=== PATIENT | male | born 1955 | race African-American/Black ===

== ENCOUNTER 2016-10-27 11:44 | Emergency (ER) | payer MEDICAID, OTHER ==
[~2016-10-27] VITALS: Ht 182.9 cm; Wt 55.0 kg
[~2016-10-27 11:44] MED LIST: ACIDCAP PO; CYCL1TAB29 PO; DICY10 PO; GABA300C5 PO; LEVEMIR SQ; MAGN250T2 PO; METF1000 PO; REGL5TAB PO
[2016-10-27 11:47] VITALS: BP 130/83; PULSE 86; RESP 36; TEMP 97.2; O2SAT 97
[2016-10-27 12:02] VITALS: BP 185/81; PULSE 68; RESP 22; TEMP 98.4; O2SAT 100
--- NOTE | 2016-10-27 12:12 | PD ---
HPI Chief Complaint: Abdominal Pain Time Seen by Provider: 12:02 Travel History International Travel<30 days: No Contact w/Intl Traveler<30days: No Traveled to known affect area: No History of Present Illness HPI 61-year-old male came to the emergency room with history of abdominal pain that started 4 days ago. Patient was admitted at [facility] for couple days after he went there to be checked. Patient has history of diabetes and history of gastroparesis. He was discharged yesterday from the hospital. Since his symptoms continue and this hospital was closer to him he decided to come here today. He has been nauseous. No vomiting. Patient said at home his blood sugar was reading high but here as per the nurse it's 225. His vital signs are otherwise stable. Patient looks anxious and in distress. [facility] Past Medical History Narrative Medical List of his past medical history as reviewed from the nursing note. Hx Anticoagulant Therapy: Yes (asa 81mg) Cancer: No Cardiovascular Problems: Yes High Cholesterol: Yes Diabetes: Yes (type I) Patient Takes Glucophage: No Diminished Hearing: No Endocrine: Yes Gastrointestinal Disorders: Yes (GASTROPARESIS) Genitourinary: No Hypertension: Yes (PATIENT SAYS HE FLUCTUATES ) Immune Disorder: No Implanted Vascular Access Dvce: Yes Musculoskeletal: No Neurologic: No Psychiatric: No Reproductive: No Respiratory: Yes (copd) Tetanus Vaccination: Unknown Influenza Vaccination: Yes ?: Not Past Surgical History Body Medical Devices: SCREWS TO LEFT HIP. BULLET AND STEEL TO RIGHT KNEE. Other Surgery: Yes Social History Alcohol Use: No Tobacco Use: Yes (09/24 PPD) Substance Use: Yes (MARIJUANA) Allergies-Medications (Allergen,Severity, Reaction): Coded Allergies: No Known Allergies (Verified , 09/08/16) Comments No known drug allergies. Reported Meds & Prescriptions Reported Meds & Active Scripts Active Reglan (Metoclopramide HCl) 5 Mg Tab 5 Mg PO TIDAC Bentyl (Dicyclomine HCl) 10 Mg Cap 10 Mg PO QID Gabapentin 300 Mg Cap 300 Mg PO TID Gabapentin 300 Mg Cap 300 Mg PO TID Metformin (Metformin HCl) 1,000 Mg Tab 1,000 Mg PO BIDPC With meals Reglan (Metoclopramide HCl) 5 Mg Tab 5 Mg PO TIDAC Reported Reglan (Metoclopramide HCl) 5 Mg Tab 5 Mg PO QID PRN Metformin (Metformin HCl) 1,000 Mg Tab 1,000 Mg PO DAILY IN THE PM With a meal Magnesium 250 Mg Tab 250 Mg PO DAILY Levemir Inj (Insulin Detemir) 1,000 unit/ 10 ML Vial 8 Units SQ BID Do not mix with any other Insulin. Gabapentin 300 Mg Cap 300 Mg PO TID Flexeril (Cyclobenzaprine HCl) 10 Mg Tab 10 Mg PO TID PRN Acidophilus (Lactobacillus Acidophilus) 1 Cap Cap 1 Cap PO TID Narrative Medication List of his home medications reviewed from the nursing note. Review of Systems Except as stated in HPI: all other systems reviewed are Neg Physical Exam Narrative GENERAL: Awake, alert, anxious, moderate distress SKIN: Warm and dry. HEAD: Atraumatic. Normocephalic. EYES: Pupils equal and round. No scleral icterus. No injection or drainage. ENT: No nasal bleeding or discharge. Mucous membranes pink and moist. NECK: Trachea midline. No JVD. CARDIOVASCULAR: Regular rate and rhythm. No murmur appreciated. RESPIRATORY: No accessory muscle use. Clear to auscultation. Breath sounds equal bilaterally. GASTROINTESTINAL: Abdomen soft, generalized tenderness, nondistended. Hepatic and splenic margins not palpable. MUSCULOSKELETAL: No obvious deformities. No clubbing. No cyanosis. No edema. NEUROLOGICAL: Awake and alert. No obvious cranial nerve deficits. Motor grossly within normal limits. Normal speech. PSYCHIATRIC: Appropriate mood and affect; insight and judgment normal. Data Data Last Documented VS Vital Signs Date Time Temp Pulse Resp B/P Pulse Ox O2 Delivery O2 Flow Rate FiO2 10/27/16 14:43 82 20 146/86 98 Room Air 10/27/16 12:02 98.4 Orders Complete Blood Count With Diff (10/27/16 12:17) Comprehensive Metabolic Panel (10/27/16 12:17) Lipase (10/27/16 12:17) Ua Includes Microscopic (10/27/16 12:17) Abdomen, Flat & Upright (10/27/16 ) Iv Access Insert/Monitor (10/27/16 12:17) Ecg Monitoring (10/27/16 12:17) Oximetry (10/27/16 12:17) Sodium Chlor 0.9% 1000 Ml Inj (Ns 1000 M (10/27/16 12:17) Sodium Chloride 0.9% Flush (Ns Flush) (10/27/16 12:30) Electrocardiogram (10/27/16 12:17) Ketorolac Inj (Toradol Inj) (10/27/16 12:30) Metoclopramide Inj (Reglan Inj) (10/27/16 12:30) Sodium Chlor 0.9% 1000 Ml Inj (Ns 1000 M (10/27/16 13:45) Labs Laboratory Tests Test 10/27/16 10/27/16 12:05 12:55 White Blood Count 6.1 TH/MM3 Red Blood Count 4.58 MIL/MM3 Hemoglobin 13.0 GM/DL Hematocrit 39.2 % Mean Corpuscular Volume 85.6 FL Mean Corpuscular Hemoglobin 28.3 PG Mean Corpuscular Hemoglobin 33.1 % Concent Red Cell Distribution Width 14.4 % Platelet Count 445 TH/MM3 Mean Platelet Volume 8.7 FL Neutrophils (%) (Auto) 74.7 % Lymphocytes (%) (Auto) 19.1 % Monocytes (%) (Auto) 5.8 % Eosinophils (%) (Auto) 0.1 % Basophils (%) (Auto) 0.3 % Neutrophils # (Auto) 4.5 TH/MM3 Lymphocytes # (Auto) 1.2 TH/MM3 Monocytes # (Auto) 0.3 TH/MM3 Eosinophils # (Auto) 0.0 TH/MM3 Basophils # (Auto) 0.0 TH/MM3 CBC Comment DIFF FINAL Differential Comment Sodium Level 127 MEQ/L Potassium Level 4.3 MEQ/L Chloride Level 91 MEQ/L Carbon Dioxide Level 29.0 MEQ/L Anion Gap 7 MEQ/L Blood Urea Nitrogen 7 MG/DL Creatinine 0.75 MG/DL Estimat Glomerular Filtration 127 ML/MIN Rate Random Glucose 235 MG/DL Calcium Level 9.6 MG/DL Total Bilirubin 0.4 MG/DL Aspartate Amino Transf 33 U/L (AST/SGOT) Alanine Aminotransferase 51 U/L (ALT/SGPT) Alkaline Phosphatase 116 U/L Total Protein 8.7 GM/DL Albumin 4.1 GM/DL Lipase 180 U/L Urine Color LIGHT-YELLOW Urine Turbidity CLEAR Urine pH 8.5 Urine Specific [place] 1.011 Urine Protein NEG mg/dL Urine Glucose (UA) 1000 mg/dL Urine Ketones 40 mg/dL Urine Occult Blood NEG Urine Nitrite NEG Urine Bilirubin NEG Urine Urobilinogen LESS THAN 2.0 MG/DL Urine Leukocyte Esterase NEG Microscopic Urinalysis Comment MDM Medical Decision Making Medical Screen Exam Complete: Yes Emergency Medical Condition: Yes Medical Record Reviewed: Yes Interpretation(s) Twelve-lead EKG was reviewed by me. Normal sinus rhythm, normal axis, possible LVH, nonspecific ST-T wave changes.. Heart rate of 68 bpm. Differential Diagnosis Small bowel obstruction, gastroparesis, acute on chronic abdominal pain Narrative Course 1:21 PM blood test results are coming back and CBC is within normal limit. Chemistry is pending. X-ray of the abdomen is waiting to be read. Patient is given IV fluid, nausea and pain medication. 2:13 PM x-rays within normal limit. I will discharge him home. Procedures EKG Prior to Arrival: No Diagnosis Primary Impression: Gastroparesis Referrals: Primary Care Physician 2 days Additional Instructions: Follow-up with your primary care. Take medication as per the prescription direction. Med/Other Pt SpecificInfo: Prescription(s) given Scripts Metoclopramide (Reglan)5 Mg Tab5 Mg PO TIDAC #15 TAB Ref 0 Prov:Singh Law MD 10/27/16 Disposition: 01 DISCHARGE HOME Condition: Stable Singh Law MD Oct 27, 2016 12:12 Singh Law MD Oct 27, 2016 12:12
[2016-10-27] MEDS ORDERED: SODIUM CHLOR 0.9% 1000 ML INJ 1,000 ML IV SCH (12:17)
[2016-10-27] MEDS ORDERED: KETOROLAC TROMETHAMINE 30 MG/ML (IVP) VIAL IVP ONE (12:30)
[2016-10-27] MEDS ORDERED: METOCLOPRAMIDE HCL 10 MG/2 ML VIAL IV PUSH ONE (12:30)
[2016-10-27] MEDS ORDERED: SODIUM CHLORIDE 0.9% FLUSH 5 ML FLUSH IVF PRN (12:30)
[2016-10-27 12:50] VITALS: O2SAT 98
[2016-10-27 12:59] LABS: AUTOMATED NEUTROPHIL # 4.5 TH/MM3 (1.8-7.7); BASOPHIL % 0.3 % (0.0-2.0); EOSINOPHIL % 0.1 % (0.0-4.0); HEMATOCRIT 39.2 % (39.0-51.0); HEMO FLAGS DIFF FINAL; LYMPH % 19.1 % (9.0-44.0); LYMPHOCYTE # 1.2 TH/MM3 (1.0-4.8); MEAN CELL VOLUME 85.6 FL (80.0-100.0); MEAN CORPUSCULAR HEMOGLOBIN 28.3 PG (27.0-34.0); MEAN CORPUSCULAR HGB CONC 33.1 % (32.0-36.0); MONO % 5.8 % (0.0-8.0); NEUT % 74.7 % (16.0-70.0); PLATELET COUNT 445 TH/MM3 (150-450); RED BLOOD COUNT 4.58 MIL/MM3 (4.50-5.90); RED CELL DISTRIBUTION WIDTH 14.4 % (11.6-17.2); WHITE BLOOD COUNT 6.1 TH/MM3 (4.0-11.0)
[2016-10-27 13:11] LABS: BLOOD, URINE NEG (NEG); GLUCOSE,URINE 1000 mg/dL (NEG); KETONE, URINE 40 mg/dL (NEG); NITRITE,URINE NEG (NEG); PH, URINE 8.5 (5.0-8.5); URINE COLOR LIGHT-YELLOW (YELLW/STRAW)
[2016-10-27 13:22] LABS: ALKALINE PHOSPHATASE 116 U/L (45-117); TOTAL BILIRUBIN ADULT 0.4 MG/DL (0.2-1.0)
[2016-10-27 13:23] LABS: ALT (GPT) 51 U/L (12-78); ANION GAP 7 MEQ/L (5-15); AST (GOT) 33 U/L (15-37); BLOOD UREA NITROGEN 7 MG/DL (7-18); CHLORIDE 91 MEQ/L (98-107); GLOMERULAR FILTRATION RATE 127 ML/MIN (>89); POTASSIUM 4.3 MEQ/L (3.5-5.1); SODIUM (NA) 127 MEQ/L (136-145)
[2016-10-27] MEDS ORDERED: SODIUM CHLOR 0.9% 1000 ML INJ 1,000 ML IV ONE (13:45)
--- NOTE | 2016-10-27 13:56 | RADRPT ---
EXAM DATE/TIME: 10/27/2016 12:42 [facility] COMPARISON: No previous studies available for comparison. INDICATIONS: Diffuse abdominal pain, nausea MEDICAL HISTORY: Diabetes mellitus type II. SURGICAL HISTORY: None. ENCOUNTER: Initial ACUITY: >1 year PAIN SCORE: 10/10 LOCATION: Bilateral abdomen FINDINGS: Lung bases are clear. Bowel gas pattern is unremarkable. There is no free air or obstruction. Port ion of bony skeleton visualized unremarkable. CONCLUSION: Nonspecific bowel gas pattern. Shravan Vides MD FACR on October 27, 2016 at 12:56 Board Certified Radiologist. This report was verified electronically.
[2016-10-27] MEDS ORDERED: REGL5TAB PO (14:14)
[2016-10-27 14:43] VITALS: BP 146/86; PULSE 82; RESP 20; O2SAT 98
--- NOTE | 2016-10-28 18:01 | EKG ---
Date Performed: 10/27/2016 Time Performed: 13:05:07 PTAGE: 61 years EKG: Sinus rhythm RIGHT ATRIAL ENLARGEMENT POSSIBLE LEFT ATRIAL ENLARGEMENT Since previous tracing, no significant sudhir nge noted ABNORMAL ECG PREVIOUS TRACING : 06/18/2016 19.04 DOCTOR: Quirino Ken Interpretating Date/Time 10/28/2016 18:00:22
== END 2016-10-27 15:05 | disposition home or self-care (01) ==
LOC: NEPE 11:44
DX: K31.84 Gastroparesis (principal); R11.0 Nausea; R94.31 Abnormal electrocardiogram [ECG] [EKG]; E10.9 Type 1 diabetes mellitus without complications; E78.00 Pure hypercholesterolemia, unspecified; I10 Essential (primary) hypertension; F17.210 Nicotine dependence, cigarettes, uncomplicated; F12.90 Cannabis use, unspecified, uncomplicated; Z79.01 Long term (current) use of anticoagulants; Z79.4 Long term (current) use of insulin
CPT/HCPCS: 74020; 80053; 81001; 83690; 85025; 93005; 96361; 96374; 96375; 99284; J1885; J2765; J7030

== ENCOUNTER 2017-05-22 17:12 | Observation (INO) | payer MEDICARE, OTHER ==
[~2017-05-22] VITALS: Ht 182.9 cm; Wt 55.0 kg
[2017-05-22 17:15] VITALS: BP 140/86; PULSE 87; RESP 18; TEMP 98.7; O2SAT 98
--- NOTE | 2017-05-22 19:33 | PD ---
HPI . Chest pain for 3 days Chief Complaint: Chest Pain Time Seen by Provider: 19:33 Travel History International Travel<30 days: No Contact w/Intl Traveler<30days: No Traveled to known affect area: No History of Present Illness HPI 62-year-old male with past history of diabetes type 1, gastroparesis and neuropathy here with complaints of 3 days worth of chest pain. Patient tells me that he's had some substernal chest pain for the past 3 days. He rates the pain as severe and tells me of 08/30. It does not radiate elsewhere. He denies any associated nausea, vomiting or diaphoresis or shortness of breath. He became concerned as this is a pain that he is not accustomed to. He tells me that he usually has gastroparesis flares, but this is something different. His PCP is Dr. Amaral. [facility] Past Medical History Hx Anticoagulant Therapy: Yes (ASA 81) Cancer: No Cardiovascular Problems: Yes High Cholesterol: Yes Diabetes: Yes Diminished Hearing: No Endocrine: Yes Gastrointestinal Disorders: Yes (GASTROPARESIS) Genitourinary: No Hypertension: Yes (PATIENT SAYS HE FLUCTUATES ) Immune Disorder: No Implanted Vascular Access Dvce: Yes Musculoskeletal: No Neurologic: No Psychiatric: No Reproductive: No Respiratory: Yes (copd) Past Surgical History Body Medical Devices: SCREWS TO LEFT HIP. BULLET AND STEEL TO RIGHT KNEE. Other Surgery: Yes Social History Alcohol Use: No Tobacco Use: Yes (09/24 PPD) Substance Use: Yes (MARIJUANA) Allergies-Medications (Allergen,Severity, Reaction): Coded Allergies: No Known Allergies (Verified , 05/22/17) Reported Meds & Prescriptions Reported Meds & Active Scripts Active Reglan (Metoclopramide HCl) 5 Mg Tab 5 Mg PO TIDAC Reported Levemir Inj (Insulin Detemir) 1,000 unit/ 10 ML Vial 25 Units SQ DAILY Do not mix with any other Insulin. Gabapentin 300 Mg Cap 300 Mg PO TID Review of Systems General / Constitutional: No: Fever Eyes: No: Visual changes HENT: No: Headaches Cardiovascular: Positive: Chest Pain or Discomfort Respiratory: No: Shortness of Breath Gastrointestinal: No: Abdominal Pain Genitourinary: No: Dysuria Musculoskeletal: No: Pain Skin: No Rash Neurologic: No: Weakness Psychiatric: No: Depression Endocrine: No: Polydipsia Hematologic/Lymphatic: No: Easy Bruising Physical Exam Narrative GENERAL: AAO x 3, no acute distress,thin appearing SKIN: Warm and dry. No visible rashes or bruising. HEAD: Normocephalic and atraumatic. EYES: No scleral icterus. No injection or drainage. ENT: No nasal drainage noted. Mucous membranes pink. Airway patent. NECK: Supple, trachea midline. No JVD. CARDIOVASCULAR: Regular rate and rhythm without murmurs, gallops, or rubs. no reproducible chest pain RESPIRATORY: Breath sounds equal bilaterally. No accessory muscle use. No rhonchi or rales. GASTROINTESTINAL: Abdomen soft, non-tender, nondistended. EXTREMITIES: No cyanosis or edema. BACK: Nontender without obvious deformity. No CVA tenderness. NEURO: CN II-12 intact, exhibitions curator strength normal b/l, UE and LE 5/5, no focal deficits PSYCH: AAO x 3, normal affect. Data Data Last Documented VS Vital Signs Date Time Temp Pulse Resp B/P (MAP) Pulse Ox O2 Delivery O2 Flow Rate FiO2 05/22/17 20:18 98 Room Air 05/22/17 20:18 16 05/22/17 17:15 98.7 87 Orders Orders Electrocardiogram (05/22/17 19:37) Basic Metabolic Panel (Bmp) (05/22/17 19:37) B-Type Natriuretic Peptide (05/22/17 19:37) Ckmb (Isoenzyme) Profile (05/22/17 19:37) Complete Blood Count With Diff (05/22/17 19:37) Magnesium (Mg) (05/22/17 19:37) Prothrombin Time / Inr (Pt) (05/22/17 19:37) Act Partial Throm Time (Ptt) (05/22/17 19:37) Troponin I (05/22/17 19:37) Chest, Single Ap (05/22/17 19:37) Ecg Monitoring (05/22/17 19:37) Bilateral Bp Monitoring (05/22/17 19:37) Iv Access Insert/Monitor (05/22/17 19:37) Oximetry (05/22/17 19:37) Oxygen Administration (05/22/17 19:37) Sodium Chloride 0.9% Flush (Ns Flush) (05/22/17 19:45) Labs Laboratory Tests Test 05/22/17 20:00 White Blood Count 4.0 TH/MM3 Red Blood Count 4.83 MIL/MM3 Hemoglobin 13.2 GM/DL Hematocrit 41.3 % Mean Corpuscular Volume 85.5 FL Mean Corpuscular Hemoglobin 27.3 PG Mean Corpuscular Hemoglobin Concent 32.0 % Red Cell Distribution Width 15.2 % Platelet Count 307 TH/MM3 Mean Platelet Volume 7.5 FL Neutrophils (%) (Auto) 41.8 % Lymphocytes (%) (Auto) 48.8 % Monocytes (%) (Auto) 7.9 % Eosinophils (%) (Auto) 1.1 % Basophils (%) (Auto) 0.4 % Neutrophils # (Auto) 1.7 TH/MM3 Lymphocytes # (Auto) 1.9 TH/MM3 Monocytes # (Auto) 0.3 TH/MM3 Eosinophils # (Auto) 0.0 TH/MM3 Basophils # (Auto) 0.0 TH/MM3 CBC Comment DIFF FINAL Differential Comment Prothrombin Time 10.0 SEC Prothromb Time International Ratio 0.9 RATIO Activated Partial Thromboplast Time 24.8 SEC MDM Medical Decision Making Medical Screen Exam Complete: Yes Emergency Medical Condition: Yes Medical Record Reviewed: Yes Differential Diagnosis atypical chest pain, ACS, costochondritis, pericarditis Narrative Course 62 yr old male here with c/o chest pain for 3 days. Exam is fairly unremarkable. I ordered labs and CXR. Patient will be admitted to the chest pain center for observation. Case has been discussed with my attending Dr. Law. She will disposition the patient. Diagnosis Primary Impression: Chest pain Qualified Codes: R07.9 - Chest pain, unspecified Admitting Information Admitting Physician Requests: Admit Condition: Stable Dee Molina May 22, 2017 19:33
[2017-05-22] MEDS ORDERED: SODIUM CHLORIDE 0.9% FLUSH 10 ML FLUSH IVF PRN (19:45)
[2017-05-22 20:18] VITALS: RESP 16; O2SAT 97
[2017-05-22 20:22] LABS: AUTOMATED NEUTROPHIL # 1.7 TH/MM3 (1.8-7.7); BASOPHIL % 0.4 % (0.0-2.0); EOSINOPHIL % 1.1 % (0.0-4.0); HEMATOCRIT 41.3 % (39.0-51.0); HEMO FLAGS DIFF FINAL; LYMPH % 48.8 % (9.0-44.0); LYMPHOCYTE # 1.9 TH/MM3 (1.0-4.8); MEAN CELL VOLUME 85.5 FL (80.0-100.0); MEAN CORPUSCULAR HEMOGLOBIN 27.3 PG (27.0-34.0); MONO % 7.9 % (0.0-8.0); NEUT % 41.8 % (16.0-70.0); PLATELET COUNT 307 TH/MM3 (150-450); RED BLOOD COUNT 4.83 MIL/MM3 (4.50-5.90); RED CELL DISTRIBUTION WIDTH 15.2 % (11.6-17.2)
[2017-05-22 20:32] LABS: APTT (PATIENT) 24.8 SEC (24.3-30.1); INTERNATIONAL NORMALIZED RATIO 0.9 RATIO
--- NOTE | 2017-05-22 21:19 | RADRPT ---
EXAM DATE/TIME: 05/22/2017 19:56 [facility] COMPARISON: No previous studies available for comparison. INDICATIONS : Left sided chest pain. MEDICAL HISTORY : Chronic obstructive pulmonary disease. SURGICAL HISTORY : None. ENCOUNTER: Initial ACUITY: 1 day PAIN SCORE: 10/10 LOCATION: chest FINDINGS: A single view of the chest demonstrates the lungs to be hyperinflated. They do appear grossly clear. The cardiomediastinal contours are unremarkable. Osseous structures are intact. CONCLUSION: Hyperinflated lungs. Ken Guo MD on May 22, 2017 at 21:17 Board Certified Radiologist. This report was verified electronically.
[2017-05-22 22:13] LABS: CREATINE KINASE 127 U/L (39-308)
[2017-05-22 22:25] LABS: CKMB 2.3 NG/ML (0.5-3.6)
[2017-05-22 22:28] LABS: ANION GAP 7 MEQ/L (5-15); BICARBONATE 27.7 MEQ/L (21.0-32.0); BLOOD UREA NITROGEN 9 MG/DL (7-18); CHLORIDE 101 MEQ/L (98-107); GLOMERULAR FILTRATION RATE 121 ML/MIN (>89); MAGNESIUM 1.8 MG/DL (1.5-2.5); POTASSIUM 3.7 MEQ/L (3.5-5.1); SODIUM (NA) 136 MEQ/L (136-145)
[2017-05-22] MEDS ORDERED: MORPHINE SULFATE 4 MG/ML INJ IV PUSH ONE (22:45)
--- NOTE | 2017-05-22 22:57 | PD ---
Physical Exam Date Seen by Provider: May 22, 2017 Time Seen by Provider: 22:52 Narrative 62-year-old male came to the emergency room for chest pain. He was seen by the nurse practitioner earlier. Case was signed out to me to follow-up on the blood test result after which patient should be admitted to the chest pain center. I went to see him after the test results are back. They're all within acceptable limits. He says he had his last stress test 10-12 months ago in [place]. I have admitted him to the chest pain center. Patient is agreeable with that plan. Data Data Last Documented VS Vital Signs Date Time Temp Pulse Resp B/P (MAP) Pulse Ox O2 Delivery O2 Flow Rate FiO2 05/22/17 20:18 98 Room Air 05/22/17 20:18 16 05/22/17 17:15 98.7 87 Orders Orders Electrocardiogram (05/22/17 19:37) Basic Metabolic Panel (Bmp) (05/22/17 19:37) B-Type Natriuretic Peptide (05/22/17 19:37) Ckmb (Isoenzyme) Profile (05/22/17 19:37) Complete Blood Count With Diff (05/22/17 19:37) Magnesium (Mg) (05/22/17 19:37) Prothrombin Time / Inr (Pt) (05/22/17 19:37) Act Partial Throm Time (Ptt) (05/22/17 19:37) Troponin I (05/22/17 19:37) Chest, Single Ap (05/22/17 19:37) Ecg Monitoring (05/22/17 19:37) Bilateral Bp Monitoring (05/22/17 19:37) Iv Access Insert/Monitor (05/22/17 19:37) Oximetry (05/22/17 19:37) Oxygen Administration (05/22/17 19:37) Sodium Chloride 0.9% Flush (Ns Flush) (05/22/17 19:45) CKMB (05/22/17 21:20) CKMB% (05/22/17 21:20) Morphine Inj (Morphine Inj) (05/22/17 22:45) Admit Order (Ed Use Only) (05/22/17 22:49) Labs Laboratory Tests Test 05/22/17 20:00 05/22/17 21:20 White Blood Count 4.0 TH/MM3 Red Blood Count 4.83 MIL/MM3 Hemoglobin 13.2 GM/DL Hematocrit 41.3 % Mean Corpuscular Volume 85.5 FL Mean Corpuscular Hemoglobin 27.3 PG Mean Corpuscular Hemoglobin Concent 32.0 % Red Cell Distribution Width 15.2 % Platelet Count 307 TH/MM3 Mean Platelet Volume 7.5 FL Neutrophils (%) (Auto) 41.8 % Lymphocytes (%) (Auto) 48.8 % Monocytes (%) (Auto) 7.9 % Eosinophils (%) (Auto) 1.1 % Basophils (%) (Auto) 0.4 % Neutrophils # (Auto) 1.7 TH/MM3 Lymphocytes # (Auto) 1.9 TH/MM3 Monocytes # (Auto) 0.3 TH/MM3 Eosinophils # (Auto) 0.0 TH/MM3 Basophils # (Auto) 0.0 TH/MM3 CBC Comment DIFF FINAL Differential Comment Prothrombin Time 10.0 SEC Prothromb Time International Ratio 0.9 RATIO Activated Partial Thromboplast Time 24.8 SEC B-Type Natriuretic Peptide 6 PG/ML Blood Urea Nitrogen 9 MG/DL Creatinine 0.78 MG/DL Random Glucose 205 MG/DL Calcium Level 8.8 MG/DL Magnesium Level 1.8 MG/DL Sodium Level 136 MEQ/L Potassium Level 3.7 MEQ/L Chloride Level 101 MEQ/L Carbon Dioxide Level 27.7 MEQ/L Anion Gap 7 MEQ/L Estimat Glomerular Filtration Rate 121 ML/MIN Total Creatine Kinase 127 U/L Creatine Kinase MB 2.3 NG/ML Troponin I LESS THAN 0.02 NG/ML MDM Supervised Visit with SCOTTIE: Yes Diagnosis Primary Impression: Chest pain Qualified Codes: R07.9 - Chest pain, unspecified Admitting Information Admitting Physician Requests: Observation Condition: Stable Singh Law MD May 22, 2017 22:57
[2017-05-22] MEDS ORDERED: ACETAMINOPHEN 500 MG CPLT PO PRN (23:00)
[2017-05-22] MEDS ORDERED: PANTOPRAZOLE SODIUM 40 MG VIAL IV PUSH ONE (23:00)
[2017-05-22] MEDS ORDERED: ASPIRIN 81 MG CHEW TAB CHEW ONE (23:00)
[2017-05-22] MEDS ORDERED: NITROGLYCERIN 0.4 MG SL 25 TABS/BTL SL PRN (23:00)
[2017-05-22] MEDS ORDERED: SODIUM CHLORIDE 0.9% FLUSH 10 ML FLUSH IV FLUSH PRN (23:00)
[2017-05-22 23:28] VITALS: O2SAT 97
[2017-05-23] VITALS (10 sets, daily range): BP systolic 98–123; BP diastolic 58–65; PULSE 70–77; RESP 16–21; TEMP 97.8–98.4; O2SAT 95–100
[2017-05-23 00:29] LABS: CREATINE KINASE 119 U/L (39-308)
[2017-05-23 00:42] LABS: CKMB 2.3 NG/ML (0.5-3.6)
[2017-05-23] MEDS ORDERED: DEXTROSE 5% IN WATER INJ 500 ML IV SCH (03:15)
[2017-05-23] MEDS ORDERED: ACETAMINOPHEN 500 MG CPLT PO PRN (03:15)
[2017-05-23] MEDS: ACETAMINOPHEN 500 MG CPLT PO PRN ×2 (03:21→11:18)
[2017-05-23] MEDS: DEXTROSE 5% IN WATE 500 ML INJ 500 ML IV SCH ×2 (03:22→13:58)
[2017-05-23 05:04] LABS: CREATINE KINASE 91 U/L (39-308)
[2017-05-23] MEDS ORDERED: SODIUM CHLORIDE 0.9% FLUSH 10 ML FLUSH IV FLUSH SCH (09:00)
[2017-05-23] MEDS ORDERED: PILL SPLITTER OTHER PRN (10:30)
[2017-05-23] MEDS ORDERED: METOCLOPRAMIDE HCL 10 MG TAB PO SCH (12:00)
[2017-05-23] MEDS ORDERED: DIATRIZOATE MEGLUM/DIATRIZOATE SOD 9 ML CUP PO ONE (12:00)
[2017-05-23] MEDS ORDERED: GABAPENTIN 300 MG CAP PO SCH (13:00)
--- NOTE | 2017-05-23 13:00 | EKG ---
Date Performed: 05/23/2017 Time Performed: 04:06:15 PTAGE: 62 years EKG: Sinus rhythm WITH OCCASIONAL SUPRAVENTRICULAR PREMATURE COMPLEXES BORDERLINE ECG PREVIOUS TRACING : 05/22/2017 23.30 DOCTOR: Roman Farias Interpretating Date/Time 05/23/2017 12:59:35
--- NOTE | 2017-05-23 13:03 | EKG ---
Date Performed: 05/22/2017 Time Performed: 23:30:08 PTAGE: 62 years EKG: Sinus rhythm NORMAL ECG PREVIOUS TRACING : 05/22/2017 19.48 DOCTOR: Roman Farias Interpretating Date/Time 05/23/2017 13:01:27
--- NOTE | 2017-05-23 13:04 | EKG ---
Date Performed: 05/22/2017 Time Performed: 19:48:15 PTAGE: 62 years EKG: Sinus rhythm NORMAL ECG PREVIOUS TRACING : 10/27/2016 13.05 DOCTOR: Roman Farias Interpretating Date/Time 05/23/2017 13:02:56
[2017-05-23] MEDS ORDERED: IOHEXOL 350 MG/ML 10 ML VIAL (for RAD DIAG) IVCONTRAST ONE (14:45)
--- NOTE | 2017-05-23 14:56 | RADRPT ---
EXAM DATE/TIME: 05/23/2017 14:09 [facility] COMPARISON: CT ABDOMEN & PELVIS W CONTRAST, June 18, 2016, 20:25. INDICATIONS : Abdomen pain. IV CONTRAST: 80 cc Omnipaque 350 (iohexol) IV ORAL CONTRAST: No oral contrast ingested. RADIATION DOSE: 9.96 CTDIvol (mGy) MEDICAL HISTORY : Chronic obstructive pulmonary disease. SURGICAL HISTORY : None. ENCOUNTER: Initial ACUITY: 1 day PAIN SCALE: 5/10 LOCATION: Bilateral abdomen. TECHNIQUE: Volumetric scanning of the abdomen and pelvis was performed. Using automated exposure control and ad justment of the mA and/or kV according to patient size, radiation dose was kept as low as reasonably achievable to obtain optimal diagnostic quality images. DICOM format image data is available electro nically for review and comparison. FINDINGS: LOWER LUNGS: The visualized lower lungs are clear. LIVER: Homogeneous density without lesion. There is no dilation of the biliary tree. No calcified gallston es. SPLEEN: Normal size without lesion. PANCREAS: Within normal limits. KIDNEYS: Normal in size and shape. There is no mass, stone or hydronephrosis. ADRENAL GLANDS: Within normal limits. VASCULAR: There is no aortic aneurysm. BOWEL/MESENTERY: There is nonspecific thickening in the antrum. ABDOMINAL WALL: Within normal limits. RETROPERITONEUM: There is no lymphadenopathy. BLADDER: No wall thickening or mass. REPRODUCTIVE: Within normal limits. INGUINAL: There is no lymphadenopathy or hernia. MUSCULOSKELETAL: Degenerative changes are seen about both SI joints with previous hip nailing on the left causing mode rate artifact. CONCLUSION: Mild bowel wall thickening antrum, nonspecific but usually associated with peptic disease. Shravan Vides MD FACR on May 23, 2017 at 14:51 Board Certified Radiologist. This report was verified electronically.
[2017-05-23] MEDS ORDERED: DEXTROSE 50% IN WATER 50 ML VIAL(D50) IV PRN (15:00)
[2017-05-23] MEDS ORDERED: GLUCAGON 1 MG/ML VIAL OTHER PRN (15:00)
[2017-05-23] MEDS ORDERED: INSULIN ASPART SUPPLEMENTAL SCALE SQ SCH (16:00)
--- NOTE | 2017-05-23 16:01 | HHI.DCPOC ---
Discharge Care Plan Goals to Promote Your Health * To prevent worsening of your condition and complications * To maintain your health at the optimal level Directions to Meet Your Goals Take your medications as prescribed Follow your dietary instruction Follow activity as directed Keep your appointments as scheduled Take your immunizations and boosters as scheduled If your symptoms worsen call your PCP, if no PCP go to Urgent Care Center or Emergency Room Smoking is Dangerous to Your Health. Avoid second hand smoke Call the 24-hour hour crisis hotline for domestic abuse at Aisha Whitney May 23, 2017 16:01
--- NOTE | 2017-05-23 16:01 | HHI.DCPOC ---
Discharge Care Plan Goals to Promote Your Health * To prevent worsening of your condition and complications * To maintain your health at the optimal level Directions to Meet Your Goals Take your medications as prescribed Follow your dietary instruction Follow activity as directed Keep your appointments as scheduled Take your immunizations and boosters as scheduled If your symptoms worsen call your PCP, if no PCP go to Urgent Care Center or Emergency Room Smoking is Dangerous to Your Health. Avoid second hand smoke Call the 24-hour hour crisis hotline for domestic abuse at Aisha Whitney May 23, 2017 16:01
--- NOTE | 2017-05-23 16:06 | HHI.DCPOC ---
Discharge Care Plan Diagnosis: (1) Abdominal pain (2) Gastroparesis due to DM (3) Bowel wall thickening (4) Weight loss, unintentional (5) Hypoalbuminemia (6) Atypical chest pain (7) Tobacco abuse Goals to Promote Your Health * To prevent worsening of your condition and complications * To maintain your health at the optimal level Directions to Meet Your Goals Take your medications as prescribed Follow your dietary instruction Follow activity as directed Keep your appointments as scheduled Take your immunizations and boosters as scheduled If your symptoms worsen call your PCP, if no PCP go to Urgent Care Center or Emergency Room Smoking is Dangerous to Your Health. Avoid second hand smoke Call the 24-hour hour crisis hotline for domestic abuse at Aisha Whitney May 23, 2017 16:05
--- NOTE | 2017-05-25 06:53 | MH ---
cc: BRIANA FARIAS MD DATE OF ADMISSION 05/22/2017 DATE OF 1955 CHIEF COMPLAINT Abdominal and chest pain. HISTORY OF PRESENT ILLNESS A very pleasant 62-year-old -[place] thin male who presents to the emergency room with complaints of midepigastric pain that radiates across his upper abdomen and left anterior chest discomfort beginning approximately 2 days ago. He states the discomfort is constant in nature, feels like a pulling type pain, is not associated with any nausea, vomiting. He has had progressive weight loss. He states decreased appetite and early satiety that has been going on for weeks. He saw his primary care physician 2 days ago and states that he had just started with the discomfort at that time and discussed some of this with him as well. He has a long history of gastroparesis and he is on Reglan for that which he states helped some. He feels that the epigastric discomfort is similar to that of his past gastroparesis pain except for worse. He denies any radiation of pain elsewhere. He notices some dyspnea at times but he is unsure, believes that might be related to when the pain is the worst. There is no diaphoresis. He has had no changes in bowel movements. He states he has been eating very little lately. He denies any history of heart disease to his knowledge. He does not recall having the left chest discomfort in the past. PAST MEDICAL HISTORY Diabetes insulin dependent, gastroparesis. Tobacco use times 30 years, has cut back to a quarter of a pack per day. Past marijuana, use none currently. Past alcohol use daily but states he quit in 2013. Positive diabetic neuropathy pain. Denies history of hypertension. Denies history of dyslipidemia. Denies history of heart disease. Left hip surgery after a fall. Positive for progressive recent weight loss. FAMILY HISTORY Significant only in his mother for late onset heart disease, of an OH in her 80s. However, he is unsure of dad's history as he is not known to him. SOCIAL HISTORY As above. MEDICATIONS 1. Levemir insulin. 2. Gabapentin. 3. Reglan. ALLERGIES NKA. REVIEW OF SYSTEMS Positive for what is discussed above in HPI, otherwise, remaining system review is negative. PHYSICAL EXAMINATION VITAL SIGNS: Vital signs were stable. Temperature 98.2, heart rate 75, respiratory rate 20, blood pressure 110/62, O2 saturations 95% on room air. He has been afebrile since admission. GENERAL: Generally, this is a very pleasant 62-year-old very thin, almost cachectic elderly -Swazi male who is friendly, cooperative, answers questions readily and resting quietly in bed in no acute distress. HEAD: Head is atraumatic, normocephalic. EYES: Sclerae clear, nonicteric. EOMI. NECK: Neck is supple. Trachea is midline. No JVD or carotid bruits. CVS: S1-S2, RRR. No S3-S4, rub, gallop or murmur. RESPIRATORY: CTA-B. ABDOMEN: Soft, concave, quite tender to light palpation along the mid epigastrium, left upper quadrant. He has hypoactive bowel sounds throughout. No definite masses are palpated. CHEST: He has just some mild left anterior chest wall musculoskeletal tenderness on exam. EXTREMITIES: Very thin. Pulses are 2+. He moves all extremities well. SKIN: Skin is cool and dry. Muscle strength testing is not done but does appear to have overall muscle loss. LABORATORY DATA CBC, lymphocyte percentage 48.8, otherwise unremarkable. Coag profile unremarkable. Basic chemistry on admission shows random blood glucose of 205. Liver functions were added and normal. Amylase, lipase normal range. Albumin is low at 3.0. Three sets of negative cardiac enzymes. IMAGING STUDIES Chest film showing hyperinflated lungs. ELECTROCARDIOGRAM EKGs were done x3 all showing sinus rhythm with occasional supraventricular premature complex. There is no changes to suggest ischemia or old injury. ASSESSMENT/PLAN 1. Epigastric/chest pain in a patient with history of gastroparesis and progressive weight loss with increasing epigastric pain as discussed above. He is ruled out with three sets of cardiac enzymes and EKGs. Seen and evaluated by Dr. Farias in cardiology. His symptoms as far as cardiac were very atypical in nature and concern was based upon his progressive reported weight loss, his increased early satiety and lack of appetite along with his history of gastroparesis and increasing abdominal pain. Labs were checked as above. CT of abdomen and pelvis was ordered and currently awaiting those results at time of dictation. He is receiving IV fluid currently for hydration and medications were resumed as appropriate prior to admission. Further plan will be based upon results of imaging. Dictated by: RAMIREZ Cohen MD ANAYA Bentley /1:02 PM /6:49 AM
== END 2017-05-23 17:32 | disposition home or self-care (01) ==
LOC: NEPD 17:12 → NEDA 22:50 → NEPFCDU 05-23 01:57
PROVIDERS: ADMIT Internal Medicine Interventional Cardiology; ATTEND Internal Medicine Interventional Cardiology
DX: R07.89 Other chest pain (principal); R10.9 Unspecified abdominal pain; I10 Essential (primary) hypertension; E88.09 Other disorders of plasma-protein metabolism, not elsewhere classified; K31.84 Gastroparesis; E10.43 Type 1 diabetes mellitus with diabetic autonomic (poly)neuropathy; J44.9 Chronic obstructive pulmonary disease, unspecified; Z72.0 Tobacco use; Z79.4 Long term (current) use of insulin
CPT/HCPCS: 71010; 74177; 80048; 82040; 82150; 82550; 82552; 82948; 83690; 83735; 83880; 84450; 84460; 84484; 85025; 85610; 85730; 93005; 96361; 96374; 96375; 99285; C9113; G0378; J2270; J7060; Q9963; Q9967

== ENCOUNTER 2017-08-14 21:23 | Emergency (ER) | payer MEDICARE, OTHER ==
[~2017-08-14 21:23] MED LIST changes: -ACIDCAP PO; -CYCL1TAB29 PO; -DICY10 PO; -MAGN250T2 PO; -METF1000 PO
[2017-08-14 21:46] VITALS: BP 111/69; PULSE 90; RESP 16; TEMP 98.1; O2SAT 98
[2017-08-14] MEDS ORDERED: KETOROLAC TROMETHAMINE 30 MG/ML (IVP) VIAL IV PUSH ONE (22:00)
[2017-08-14] MEDS ORDERED: SODIUM CHLORIDE 0.9% FLUSH 10 ML FLUSH IV FLUSH PRN (22:00)
[2017-08-14] MEDS ORDERED: SODIUM CHLOR 0.9% 1000 ML INJ 1,000 ML IV SCH (22:00)
[2017-08-14] MEDS ORDERED: METOCLOPRAMIDE HCL 10 MG/2 ML VIAL IV PUSH ONE (22:00)
--- NOTE | 2017-08-14 22:03 | PD ---
HPI Chief Complaint: Abdominal Pain Time Seen by Provider: 21:51 Travel History International Travel<30 days: No Contact w/Intl Traveler<30days: No Traveled to known affect area: No History of Present Illness HPI Patient is a 62-year-old male presents emergency department for evaluation of generalized fatigue. Patient also states she's been having some abdominal discomfort. States she has a history of gastroparesis has been presenting to multiple ERs in the area and ultimately referred to pain management by his primary care physician. Patient states he called the pain management doctor who told him he needed to see a imaging aide. He states he has an appointment with his imaging aide this coming Thursday but for the past 24- 48 hours she's really been feeling weeks we decided to come in and be seen tonight. Denies any vomiting or diarrhea to me. Denies any fevers. States is just feeling rundown. States symptoms are gradually worsening. PFSH Past Medical History Hx Anticoagulant Therapy: Yes (ASA 81) Heart Rhythm Problems: No Cancer: No Cardiac Catheterization: No Cardiovascular Problems: No High Cholesterol: No Congestive Heart Failure: No Diabetes: Yes Patient Takes Glucophage: No Diminished Hearing: No Endocrine: Yes Gastrointestinal Disorders: Yes (GASTROPARESIS) Genitourinary: No Immune Disorder: No Implanted Vascular Access Dvce: Yes Musculoskeletal: No Neurologic: No Psychiatric: No Reproductive: No Respiratory: Yes (copd) Past Surgical History Body Medical Devices: SCREWS TO LEFT HIP. BULLET AND STEEL TO RIGHT KNEE. Coronary Artery Bypass Graft: No Other Surgery: Yes Family History Family Myocardial Infarction: Yes (maternal side ) Social History Alcohol Use: No Tobacco Use: Yes (09/24 PPD) Substance Use: Yes (MARIJUANA) Allergies-Medications (Allergen,Severity, Reaction): Coded Allergies: No Known Allergies (Verified Adverse Reaction, Unknown, 08/14/17) Reported Meds & Prescriptions Reported Meds & Active Scripts Active Reglan (Metoclopramide HCl) 5 Mg Tab 5 Mg PO TIDAC Reported Levemir Inj (Insulin Detemir) 1,000 unit/ 10 ML Vial 25 Units SQ DAILY Do not mix with any other Insulin. Gabapentin 300 Mg Cap 300 Mg PO TID Review of Systems Except as stated in HPI: all other systems reviewed are Neg Physical Exam Narrative GENERAL: Well-developed thin but well-nourished in no obvious distress. SKIN: Focused skin assessment warm/dry. HEAD: Atraumatic. Normocephalic. EYES: Pupils equal and round. No scleral icterus. No injection or drainage. ENT: No nasal bleeding or discharge. Mucous membranes pink and moist. NECK: Trachea midline. No JVD. CARDIOVASCULAR: Regular rate and rhythm. No murmur appreciated. RESPIRATORY: No accessory muscle use. Clear to auscultation. Breath sounds equal bilaterally. GASTROINTESTINAL: Abdomen soft, non-tender, nondistended. Hepatic and splenic margins not palpable. No rebound no percussive tenderness no mass bowel sounds are normal active. MUSCULOSKELETAL: No obvious deformities. No clubbing. No cyanosis. No edema. NEUROLOGICAL: Awake and alert. No obvious cranial nerve deficits. Motor grossly within normal limits. Normal speech. PSYCHIATRIC: Appropriate mood and affect; insight and judgment normal. Data Data Last Documented VS Vital Signs Date Time Temp Pulse Resp B/P (MAP) Pulse Ox O2 Delivery O2 Flow Rate FiO2 08/14/17 21:46 98.1 90 16 111/69 (83) 98 Orders Orders Complete Blood Count With Diff (08/14/17 22:00) Comprehensive Metabolic Panel (08/14/17 22:00) Lipase (08/14/17 22:00) Iv Access Insert/Monitor (08/14/17 22:00) Ecg Monitoring (08/14/17 22:00) Oximetry (08/14/17 22:00) Sodium Chlor 0.9% 1000 Ml Inj (Ns 1000 M (08/14/17 22:00) Sodium Chloride 0.9% Flush (Ns Flush) (08/14/17 22:00) Metoclopramide Inj (Reglan Inj) (08/14/17 22:00) Ketorolac Inj (Toradol Inj) (08/14/17 22:00) Insulin Human Regular Inj (Novolin R Inj (08/14/17 23:15) Acetaminophen (Tylenol) (08/15/17 01:00) Ed Discharge Order (08/15/17 00:50) Electrocardiogram (08/14/17 21:42) Labs Laboratory Tests Test 08/14/17 22:05 White Blood Count 4.6 TH/MM3 Red Blood Count 4.63 MIL/MM3 Hemoglobin 13.2 GM/DL Hematocrit 42.4 % Mean Corpuscular Volume 91.4 FL Mean Corpuscular Hemoglobin 28.6 PG Mean Corpuscular Hemoglobin Concent 31.3 % Red Cell Distribution Width 14.0 % Platelet Count 373 TH/MM3 Mean Platelet Volume 7.9 FL Neutrophils (%) (Auto) 59.6 % Lymphocytes (%) (Auto) 32.5 % Monocytes (%) (Auto) 6.6 % Eosinophils (%) (Auto) 0.7 % Basophils (%) (Auto) 0.6 % Neutrophils # (Auto) 2.7 TH/MM3 Lymphocytes # (Auto) 1.5 TH/MM3 Monocytes # (Auto) 0.3 TH/MM3 Eosinophils # (Auto) 0.0 TH/MM3 Basophils # (Auto) 0.0 TH/MM3 CBC Comment DIFF FINAL Differential Comment Blood Urea Nitrogen 22 MG/DL Creatinine 1.03 MG/DL Random Glucose 542 MG/DL Total Protein 8.3 GM/DL Albumin 3.8 GM/DL Calcium Level 9.1 MG/DL Alkaline Phosphatase 158 U/L Aspartate Amino Transf (AST/SGOT) 35 U/L Alanine Aminotransferase (ALT/SGPT) 52 U/L Total Bilirubin 0.3 MG/DL Sodium Level 130 MEQ/L Potassium Level 4.9 MEQ/L Chloride Level 94 MEQ/L Carbon Dioxide Level 23.1 MEQ/L Anion Gap 13 MEQ/L Estimat Glomerular Filtration Rate 88 ML/MIN Lipase 349 U/L MDM Medical Decision Making Medical Screen Exam Complete: Yes Emergency Medical Condition: Yes Differential Diagnosis Gastritis, gastroenteritis, bowel obstruction unlikely, acute abdomen highly unlikely. Narrative Course Patient roomed emerged, quite vague abdominal symptoms DKA is a consideration however the patient has no laboratory evidence of such. Sugar is significantly elevated and after insulin and fluids and is much better. On reevaluation patient is sleeping soundly his abdomen is completely benign. He is requesting additional pain medicine but given the benign nature of his abdomen is no indication for CAT scan imaging at this time. His labs are otherwise reassuring. Sugar better under control he is stable for discharge. Given the chronic nature of these symptoms are recommended that he follow-up with a imaging aide as scheduled on Thursday and he can feel free to return to emergency department over the weekend should he need it. He is stable for discharge Diagnosis Primary Impression: Abdominal pain Qualified Codes: R10.9 - Unspecified abdominal pain Additional Impression: Hyperglycemia Referrals: [facility] Disposition: 01 DISCHARGE HOME Condition: Stable Jet Burnette MD Aug 14, 2017 22:03
[2017-08-14 22:35] LABS: AUTOMATED NEUTROPHIL # 2.7 TH/MM3 (1.8-7.7); BASOPHIL % 0.6 % (0.0-2.0); EOSINOPHIL % 0.7 % (0.0-4.0); HEMATOCRIT 42.4 % (39.0-51.0); HEMO FLAGS DIFF FINAL; LYMPH % 32.5 % (9.0-44.0); LYMPHOCYTE # 1.5 TH/MM3 (1.0-4.8); MEAN CELL VOLUME 91.4 FL (80.0-100.0); MEAN CORPUSCULAR HEMOGLOBIN 28.6 PG (27.0-34.0); MEAN CORPUSCULAR HGB CONC 31.3 % (32.0-36.0); MONO % 6.6 % (0.0-8.0); NEUT % 59.6 % (16.0-70.0); PLATELET COUNT 373 TH/MM3 (150-450); RED BLOOD COUNT 4.63 MIL/MM3 (4.50-5.90); WHITE BLOOD COUNT 4.6 TH/MM3 (4.0-11.0)
[2017-08-14 23:05] LABS: ANION GAP 13 MEQ/L (5-15)
[2017-08-14 23:06] LABS: ALKALINE PHOSPHATASE 158 U/L (45-117); ALT (GPT) 52 U/L (12-78); AST (GOT) 35 U/L (15-37); BICARBONATE 23.1 MEQ/L (21.0-32.0); BLOOD UREA NITROGEN 22 MG/DL (7-18); CHLORIDE 94 MEQ/L (98-107); GLOMERULAR FILTRATION RATE 88 ML/MIN (>89); POTASSIUM 4.9 MEQ/L (3.5-5.1); SODIUM (NA) 130 MEQ/L (136-145); TOTAL BILIRUBIN ADULT 0.3 MG/DL (0.2-1.0)
[2017-08-14] MEDS ORDERED: INSULIN HUMAN REGULAR 1,000 UNITS/10 ML VIAL IV PUSH ONE (23:15)
[2017-08-15] MEDS ORDERED: ACETAMINOPHEN 500 MG CPLT PO ONE (01:00)
--- NOTE | 2017-08-15 14:50 | EKG ---
Date Performed: 08/14/2017 Time Performed: 21:42:41 PTAGE: 62 years EKG: Sinus rhythm POSSIBLE RIGHT ATRIAL ENLARGEMENT BORDERLINE ECG Compared to the PREVIOUS TRACING from 05/23/17, no significant change DOCTOR: Qamar Bravo Interpretating Date/Time 08/15/2017 14:49:00
== END 2017-08-15 02:16 | disposition home or self-care (01) ==
LOC: NEPC 21:23
DX: R10.9 Unspecified abdominal pain (principal); E11.65 Type 2 diabetes mellitus with hyperglycemia; F17.200 Nicotine dependence, unspecified, uncomplicated; E11.43 Type 2 diabetes mellitus with diabetic autonomic (poly)neuropathy; K31.84 Gastroparesis; J44.9 Chronic obstructive pulmonary disease, unspecified; Z79.899 Other long term (current) drug therapy
CPT/HCPCS: 80053; 83690; 85025; 93005; 96361; 96374; 96375; 99284; J1815; J1885; J2765; J7030